=== PATIENT | male | born 1950 | race Caucasian/White ===

== ENCOUNTER 2022-05-04 20:23 | Emergency (ER) | payer MEDICARE | END 2022-05-04 22:04 | disposition home or self-care (01) | LOC: JD.ED 20:23 | DX: R33.9 Retention of urine, unspecified (principal); Z88.0 Allergy status to penicillin | CPT/HCPCS: 51702; 81001; 99282; 99284-25 ==

== ENCOUNTER 2022-05-11 06:20 | Emergency (ER) | payer MEDICARE | END 2022-05-11 10:50 | disposition home or self-care (01) | LOC: JD.ED 06:20 | DX: N39.0 Urinary tract infection, site not specified (principal); R33.9 Retention of urine, unspecified; R11.0 Nausea; R55 Syncope and collapse; Z88.0 Allergy status to penicillin | CPT/HCPCS: 36415; 80053; 81001; 83735; 84484; 85025; 87086; 87088; 87186; 99285 ==